=== PATIENT | female | born 1955 | race American Indian/Alaskan Native ===

== ENCOUNTER 2017-11-27 15:11 | Emergency (ER) | payer MEDICARE, OTHER ==
[2017-11-27 16:04] VITALS: BMI 35.9
[2017-11-27 16:10] VITALS: RESP 18; TEMP 98.2
--- NOTE | 2017-11-27 20:48 | ED PDOC ---
Arrival/HPI - General Chief Complaint: Hip Pain Time Seen by Provider: 11/27/17 16:53 Historian: Patient - History of Present Illness Narrative History of Present Illness (Text): 11/27/17 20:41 62yo female with PMHx of MS present with complaint of right hip pain that radiates down to her leg x months. The daughter by the bedside states patient fells secondary patient's lower extremity weakness and wanted to make sure that she didn't have a fracture . Notes that the last time she fell was 2weeks ago, but she have had the pain on her hip, weeks prior to that. She states she saw her PMD for same pain in the past and was given unknown medication which she finished. States the analgesic wasn't helping the pain. She denies back pain, nausea, vomiting, abdominal pain, LE edema, SOB, diaphoresis, any other complaint. Past Medical History - Provider Review Nursing Documentation Reviewed: Yes - Infectious Disease Hx of Infectious Diseases: None - Cardiac Hx Hypertension: Yes - Pulmonary Hx Asthma: Yes - Neurological Hx Neurological Disorder: Yes (MS) Hx Multiple Sclerosis: Yes - Musculoskeletal/Rheumatological Hx Arthritis: Yes - Gastrointestinal Hx Gastrointestinal Disorders: No - Genitourinary/Gynecological Hx Genitourinary Disorders: No - Psychiatric Hx Substance Use: No - Surgical History Other/Comment: Colonoscopy - Anesthesia Hx Anesthesia: Yes Hx Anesthesia Reactions: No Hx Malignant Hyperthermia: No Family/Social History - Physician Review Nursing Documentation Reviewed: Yes Family/Social History: Unknown Family HX Smoking Status: Never Smoked Hx Alcohol Use: No Hx Substance Use: No Allergies/Home Meds Allergies/Adverse Reactions: Allergies No Known Allergies Allergy (Verified 12/06/16 17:22) Home Medications: Home Meds Medication Instructions Recorded Confirmed Baclofen [Lioresal] 1 tab PO TID 11/27/17 11/27/17 Tolterodine [Detrol LA] 1 tab PO DAILY 11/27/17 11/27/17 Review of Systems - Physician Review All systems were reviewed & negative as marked: Yes - Review of Systems Constitutional: Normal Eyes: Normal ENT: Normal Respiratory: Normal Cardiovascular: Normal Gastrointestinal: Normal Genitourinary Female: Normal Musculoskeletal: Arthralgias (right hip pain) Skin: Normal Neurological: Normal Endocrine: Normal Hemo/Lymphatic: Normal Psychiatric: Normal Physical Exam Vital Signs Reviewed: Yes Vital Signs Temp Pulse Resp BP Pulse Ox 11/27/17 16:09 98.2 F 69 18 159/109 H 97 Temperature: Afebrile Blood Pressure: Hypertensive Pulse: Regular Respiratory Rate: Normal Appearance: Positive for: Well-Appearing, Non-Toxic, Comfortable Pain Distress: None Mental Status: Positive for: Alert and Oriented X 3 - Systems Exam Head: Present: Atraumatic, Normocephalic Pupils: Present: PERRL Extroacular Muscles: Present: EOMI Conjunctiva: Present: Normal Mouth: Present: Moist Mucous Membranes Neck: Present: Normal Range of Motion Respiratory/Chest: Present: Clear to Auscultation, Good Air Exchange. No: Respiratory Distress, Accessory Muscle Use Cardiovascular: Present: Regular Rate and Rhythm, Normal S1, S2. No: Murmurs Abdomen: Present: Normal Bowel Sounds. No: Tenderness, Distention, Peritoneal Signs Back: Present: Normal Inspection Upper Extremity: Present: Normal Inspection. No: Cyanosis, Edema Lower Extremity: Present: Normal Inspection, NORMAL PULSES, Tenderness (Right hip), Other (Weakness of right LE secondary to MS). No: Edema, CALF TENDERNESS , Normal ROM (Unable to ascess secondary to weakness from MS), Swelling Neurological: Present: GCS=15, CN II-XII Intact, Speech Normal Skin: Present: Warm, Dry, Normal Color. No: Rashes Psychiatric: Present: Alert, Oriented x 3, Normal Insight, Normal Concentration Medical Decision Making ED Course and Treatment: 11/27/17 20:50 PT in ED for stated history. Her pain improved in ED with medication. she was ambulatory with a cane. Hip/Pelvic xray - Negative for any acute finding Result was DW the pt. She will be DC home with Tramadol. Referred to her PMD. - RAD Interpretation Radiology Orders: 11/27/17 16:53 HIP MIN 2V W/ PELVIS ROSEANN [RAD] Stat - Medication Orders Current Medication Orders: Discontinued Medications Tramadol HCl (Ultram) 50 mg PO STAT STA Stop: 11/27/17 17:29 Last Admin: 11/27/17 19:05 Dose: 50 mg [facility] Pain Assessment Document 11/27/17 19:05 OCS (Rec: 11/27/17 19:05 OCS [id number]) Pain Reassessment Is this a pain reassessment? Yes Sleep Is patient sleeping during reassessment? No Presence of Pain Presence of Pain Yes Pain Scale Used Pain Scale Used Numeric Location Left, Right or Bilateral Bilateral Pain Location Body Site Back Description Description Constant Intensity of Pain at present 8 Disposition/Present on Arrival - Present on Arrival Any Indicators Present on Arrival: No History of DVT/PE: No History of Uncontrolled Diabetes: No Urinary Catheter: No History of Decub. Ulcer: No History Surgical Site Infection Following: None - Disposition Have Diagnosis and Disposition been Completed?: Yes Diagnosis: Hip pain Disposition: HOME/ ROUTINE Disposition Time: 20:55 Patient Plan: Discharge Patient Problems: Current Active Problems Problem Status Onset Hip pain Acute Condition: STABLE Discharge Instructions (ExitCare): Hip Pain (ED) Additional Instructions: Follow up with your Doctor Return to ED for any new or worsening symptoms Prescriptions: traMADol [Ultram] 50 mg PO TID #10 tab Referrals: Stacie Isaacs, [Primary Care Provider] - Follow up with primary Forms: Go[employer] (Portuguese)
[2017-11-27 21:13] VITALS: BP 146/90; PULSE 63; O2SAT 98
--- NOTE | 2017-11-28 08:43 | RAD ---
PROCEDURE: BILATERAL HIPS WITH PELVIS HISTORY: right hip pain COMPARISON: None available. TECHNIQUE: Frontal views of the bilateral hip joints and pelvis were submitted as well as frog-leg lateral views bilaterally. FINDINGS: There is no acute fracture dislocation appreciate the throughout the pelvic ring or the bilateral hip joints. No destructive bony changes identified either. However, there is prominent articular cortical sclerosis identified in the bilateral hip joints with joint space narrowing are also identified. Osteophyte development is greater the left and right hip joints compatible with advanced degenerative joint disease. Bilateral sacroiliac joints are also degenerated but moderately so. Advanced multilevel facet joint arthropathy is appreciated as well as degenerative disease at the inferior lumbar spine as imaged. Pubic symphysis appears intact. Diffuse osteopenia suggests osteoporosis. IMPRESSION: Advanced degenerative changes are seen at the bilateral hip joints, greater the left than right hip joints with bilateral sacroiliac joint degenerative change is also evident. Diffuse osteopenia suggests osteoporosis. No acute fracture or dislocation identified.
== END 2017-11-27 21:15 | disposition home or self-care (01) ==
LOC: ED 15:11
DX: M25.551 Pain in right hip (principal); G35 Multiple sclerosis; I10 Essential (primary) hypertension